=== PATIENT | male | born 2000 ===

== ENCOUNTER 2020-06-12 16:58 | Observation (INO) | payer OTHER ==
[~2020-06-12] VITALS: Ht 167.6 cm; Wt 66.2 kg
[2020-06-12] MEDS ORDERED: SODIUM CHLORIDE 0.9% 1000ML 1,000 ML IV STA (17:28)
[2020-06-12] MEDS ORDERED: METOPROLOL TARTRATE 25 MG TAB PO ONE (17:30)
[2020-06-12 18:03] LABS: BASOPHILS # (AUTO) 0.1 (0.0-0.1); BASOPHILS % 0.9 % (0.0-1.0); EOSINOPHILS # (AUTO) 0.5 (0.0-0.4); EOSINOPHILS % 8.8 % (0.0-6.0); HEMATOCRIT 42.2 % (38.2-49.6); HEMOGLOBIN 13.5 g/dL (14.0-18.0); INR 0.96; LYMPHOCYTES # (AUTO) 2.3 (1.0-3.2); LYMPHOCYTES % 41.9 % (18.0-39.1); MEAN CORPUSCULAR HEMOGLOBIN 26.9 pg (28-32); MEAN CORPUSCULAR VOLUME 84.1 fL (81-99); MONOCYTES # (AUTO) 0.4 (0.2-0.8); MONOCYTES % 7.1 % (4.4-11.3); NEUTROPHILS # (AUTO) 2.2 (2.1-6.9); NEUTROPHILS % 40.7 % (38.7-80.0); PLATELET COUNT 308 x10e3/uL (140-360); PROTHROMBIN TIME 13.4 seconds (11.9-14.5); RED BLOOD COUNT 5.02 x10e6/uL (4.3-5.7); RED CELL DISTRIBUTION WIDTH 12.6 % (11.7-14.4)
[2020-06-12 18:04] LABS: PARTIAL THROMBOPLASTIN TIME 26.4 seconds (23.8-35.5)
--- NOTE | 2020-06-12 18:07 | Diagnostic Imaging Report ---
EXAMINATION: CHEST SINGLE (PORTABLE) INDICATION: New atrial fibrillation. COMPARISON: None FINDINGS: TUBES and LINES: None. LUNGS: Normal lung volumes. Lungs are clear. No consolidations. PLEURA: No pleural effusion or pneumothorax. HEART AND MEDIASTINUM: The cardiomediastinal silhouette is unremarkable. BONES AND SOFT TISSUES: No acute osseous lesion. Soft tissues are unremarkable. UPPER ABDOMEN: No free air under the diaphragm. IMPRESSION: Normal chest x-ray. Signed by: Ivett aGribay MD on 06/12/2020 6:04 PM
[2020-06-12 18:11] LABS: ALANINE AMINOTRANSFERASE 22 IU/L (0-55); ALBUMIN 4.1 g/dL (3.5-5.0); ALBUMIN/GLOBULIN RATIO 1.2 (0.8-2.0); ALKALINE PHOSPHATASE 56 IU/L (40-150); ANION GAP 11.9 mmol/L (8-16); BLOOD UREA NITROGEN 12 mg/dL (7-26); BUN/CREATININE RATIO 9 (6-25); CALCIUM 9.7 mg/dL (8.4-10.2); CARBON DIOXIDE 28 mmol/L (22-29); CHLORIDE 105 mmol/L (98-107); CREATINE KINASE 230 IU/L (30-200); EST GLOMERULAR FILTRATION RATE > 60 ML/MIN (60-); GLUCOSE 106 mg/dL (74-118); MAGNESIUM 1.7 MG/DL (1.3-2.1); POTASSIUM 3.9 mmol/L (3.5-5.1); SODIUM 141 mmol/L (136-145)
[2020-06-12 18:32] LABS: THYROID STIMULATING HORMONE 1.142 uIU/mL (0.350-4.940)
[2020-06-12 18:36] LABS: BILIRUBIN,URINE NEGATIVE (NEGATIVE); CLARITY,URINE CLEAR (CLEAR); COLOR,URINE YELLOW (YELLOW); KETONES,URINE NEGATIVE (NEGATIVE); LEUKOCYTE ESTERASE ,URINE NEGATIVE (NEGATIVE); NITRITE,URINE NEGATIVE (NEGATIVE); PROTEIN,URINE DIPSTICK NEGATIVE (NEGATIVE); URINE UROBILINOGEN 0.2 mg/dL (0.2 - 1)
[2020-06-12 18:50] LABS: BACTERIA,URINE RARE /HPF; EPITHELIAL CELLS,URINE RARE /LPF
--- NOTE | 2020-06-12 19:11 | Emergency Department Note ---
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 Onset (how long ago): day(s) Radiation: Reports non-radiation Severity: mild Onset quality: gradual Duration (how long): day(s) Timing of current episode: constant Progression: unchanged Chronicity: new Context: Denies recent illness, Denies recent surgery, Denies recent immobilization, Denies recent travel, Denies trauma/injury, Denies new medications, Denies hx of DVT/PE, Denies non-compliance w/ medications, Denies other Relieving factors: none Exacerbating factors: none Associated symptoms: Reports denies other symptoms Treatments prior to arrival: none Past Medical/Family History Physician Review I have reviewed the patient's past medical and family history. Any updates have been documented here. Past Medical History Recent Fever: No Clinical Suspicion of Infectio: No New/Unexplained Change in Ment: No Past Medical History: None Other Surgery: FINGER REPORT Social History Smoking Cessation: Never Smoker Alcohol Use: None Any Illegal Drug Use: No Physically hurt or threatened: No Family History Family history of heart diseas: Yes Other family history Cardiomyopathy on father's side Review of Systems Review of Systems Constitutional: Reports no symptoms EENTM: Reports no symptoms Cardiovascular: Reports palpitations Respiratory: Reports no symptoms Gastrointestinal: Reports no symptoms Genitourinary: Reports no symptoms Musculoskeletal: Reports no symptoms Integumentary: Reports no symptoms Neurological: Reports no symptoms Psychological: Reports no symptoms Endocrine: Reports no symptoms Hematological/Lymphatic: Reports no symptoms Physical Exam Related Data Allergies: Coded Allergies: No Known Allergies (Unverified , 06/12/20) Triage Vital Signs Vital Signs Date Time Temp Pulse Resp B/P (MAP) Pulse Ox O2 Delivery O2 Flow Rate FiO2 06/12/20 17:17 98.4 73 18 129/77 100 Room Air Vital signs reviewed: Yes Physical Exam CONSTITUTIONAL Constitutional: Present well-developed, Present well-nourished HENT HENT: Present normocephalic, Present atraumatic, Present oropharynx clear/moist, Present nose normal HENT L/R: Present left ext ear normal, Present right ext ear normal EYES Eyes: Reports PERRL, Reports conjunctivae normal NECK Neck: Present ROM normal PULMONARY Pulmonary: Present effort normal, Present breath sounds normal CARDIOVASCULAR Cardiovascular: Present irregular rhythm, Present tachycardia GASTROINTESTINAL Abdominal: Present soft, Present nontender, Present bowel sounds normal GENITOURINARY Genitourinary: Present exam deferred SKIN Skin: Present warm, Present dry MUSCULOSKELETAL Musculoskeletal: Present ROM normal NEUROLOGICAL Neurological: Present alert, Present oriented x 3, Present no gross motor or sensory deficits PSYCHOLOGICAL Psychological: Present mood/affect normal, Present judgement normal Results Laboratory Result Diagram: 06/12/20172906/12/201729 Laboratory Laboratory Tests Test 06/12/20 17:40 06/12/20 17:30 Urine Color Yellow (YELLOW) Urine Clarity Clear (CLEAR) Urine pH 8.5 (5 - 7) Urine Specific [place] 1.020 (1.010-1.025) Urine Protein Negative (NEGATIVE) Urine Glucose (UA) Negative (NEGATIVE) Urine Ketones Negative (NEGATIVE) Urine Blood Negative (NEGATIVE) Urine Nitrite Negative (NEGATIVE) Urine Bilirubin Negative (NEGATIVE) Urine Urobilinogen 0.2 mg/dL (0.2 - 1) Urine Leukocyte Esterase Negative (NEGATIVE) Urine RBC None /HPF (0-5) Urine WBC 6-10 /HPF (0-5) Urine Epithelial Cells Rare /LPF (NONE) Urine Bacteria Rare /HPF (NONE) White Blood Count 5.37 x10e3/uL (4.8-10.8) Red Blood Count 5.02 x10e6/uL (4.3-5.7) Hemoglobin 13.5 g/dL (14.0-18.0) Hematocrit 42.2 % (38.2-49.6) Mean Corpuscular Volume 84.1 fL (81-99) Mean Corpuscular Hemoglobin 26.9 pg (28-32) Mean Corpuscular Hemoglobin Concent 32.0 g/dL (31-35) Red Cell Distribution Width 12.6 % (11.7-14.4) Platelet Count 308 x10e3/uL (140-360) Neutrophils (%) (Auto) 40.7 % (38.7-80.0) Lymphocytes (%) (Auto) 41.9 % (18.0-39.1) Monocytes (%) (Auto) 7.1 % (4.4-11.3) Eosinophils (%) (Auto) 8.8 % (0.0-6.0) Basophils (%) (Auto) 0.9 % (0.0-1.0) Neutrophils # (Auto) 2.2 (2.1-6.9) Lymphocytes # (Auto) 2.3 (1.0-3.2) Monocytes # (Auto) 0.4 (0.2-0.8) Eosinophils # (Auto) 0.5 (0.0-0.4) Basophils # (Auto) 0.1 (0.0-0.1) Absolute Immature Granulocyte (auto 0.03 x10e3/uL (0-0.1) Prothrombin Time 13.4 seconds (11.9-14.5) Prothromb Time International Ratio 0.96 Activated Partial Thromboplast Time 26.4 seconds (23.8-35.5) D-Dimer Quantitative (PE/DVT) < 100 ng/mL (0-400) Sodium Level 141 mmol/L (136-145) Potassium Level 3.9 mmol/L (3.5-5.1) Chloride Level 105 mmol/L (98-107) Carbon Dioxide Level 28 mmol/L (22-29) Anion Gap 11.9 mmol/L (8-16) Blood Urea Nitrogen 12 mg/dL (7-26) Creatinine 1.40 mg/dL (0.72-1.25) Estimat Glomerular Filtration Rate > 60 ML/MIN (60-) BUN/Creatinine Ratio 9 (6-25) Glucose Level 106 mg/dL (74-118) Calcium Level 9.7 mg/dL (8.4-10.2) Magnesium Level 1.7 MG/DL (1.3-2.1) Total Bilirubin 1.1 mg/dL (0.2-1.2) Aspartate Amino Transf (AST/SGOT) 22 IU/L (5-34) Alanine Aminotransferase (ALT/SGPT) 22 IU/L (0-55) Alkaline Phosphatase 56 IU/L (40-150) Creatine Kinase 230 IU/L (30-200) Creatine Kinase MB 0.80 ng/mL (0-5.0) Troponin I 0.003 ng/mL (0-0.300) B-Type Natriuretic Peptide < 10.0 pg/mL (0-100) Total Protein 7.6 g/dL (6.5-8.1) Albumin 4.1 g/dL (3.5-5.0) Globulin 3.5 g/dL (2.3-3.5) Albumin/Globulin Ratio 1.2 (0.8-2.0) Thyroid Stimulating Hormone (TSH) 1.142 uIU/mL (0.350-4.940) Lab results reviewed: Yes Imaging Imaging results reviewed: Yes Impressions [place] [id number] Patient Name: MELQUIADES VALLE MR #: [id number] : 2000 Age/Sex: 19/M Req #: [id number] Adm Physician: Ordered by: GALLO STOCK MD Report #: [id number] Location: ER Room/Bed: Procedure: [id number] DX/CHEST SINGLE (PORTABLE) Exam Date: Exam Time: REPORT STATUS: Signed EXAMINATION: CHEST SINGLE (PORTABLE) INDICATION: New atrial fibrillation. COMPARISON: None FINDINGS: TUBES and LINES: None. LUNGS: Normal lung volumes. Lungs are clear. No consolidations. PLEURA: No pleural effusion or pneumothorax. HEART AND MEDIASTINUM: The cardiomediastinal silhouette is unremarkable. BONES AND SOFT TISSUES: No acute osseous lesion. Soft tissues are unremarkable. UPPER ABDOMEN: No free air under the diaphragm. IMPRESSION: Normal chest x-ray. 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 CMP, CBC, EKG, and cardiac enzymes ordered for consideration of ACS, PE, costocondritis, Chest wall pain, and pneumothorax considered. labs, imaging and EKG reviewed . Plan to admit Assessment & Plan Final Impression: (1) Atrial fibrillation with RVR (2) Renal insufficiency Depart Disposition: ADMITTED Last Vital Signs Date Time Temp Pulse Resp B/P (MAP) Pulse Ox O2 Delivery O2 Flow Rate FiO2 06/12/20 17:17 98.4 73 18 129/77 100 Room Air Medications in the ED Sodium Chloride 1,000 ml @ 0 mls/hr Q0M STAT IV ; Start 06/12/20 at 17:28; Stop 06/12/20 at 17:31; Status DC Metoprolol Tartrate 12.5 mg ONCE ONCE PO ; Start 06/12/20 at 17:30; Stop 06/12/20 at 17:32; Status DC JANNETTE HURTADO DO Jun 12, 2020 19:11
[2020-06-12] MEDS ORDERED: ONDANSETRON HCL INJ 2MG/ML 2ML 2 MG/ML VIAL IV PRN (19:45)
[2020-06-12] MEDS ORDERED: MORPHINE SULFATE 2 MG/ML SYR 1ML IV PRN (19:45)
[2020-06-12] MEDS ORDERED: MORPHINE SULFATE INJ 4 MG/ML INJ 1ML IV PRN (20:00)
[2020-06-12 21:21] VITALS: BP 117/79
--- NOTE | 2020-06-12 21:21 | NUR ---
RECEIVED REPORT FROM NIKKI ER NURSE. PATIENT ARRIVED VIA WHEELCHAIR TO THE UNIT. MOTHER WAS ALLOWED TO STAY WITH THE PATIENT. PATIENT IN NO PAIN OR DISTRESS. CALL LIGHT WITHIN REACH. PATIENT IS A&OX4 AND AMBULATES.
[2020-06-12 21:30] VITALS: BP 117/79
[2020-06-12] MEDS: SODIUM CHLORIDE 0.9% 1000ML 1,000 ML IV SCH (22:11)
[2020-06-13] VITALS (8 sets, daily range): BP systolic 119–141; BP diastolic 88–96
[2020-06-13] MEDS ORDERED: FLUTICASONE PRO16 GM (01:21)
[2020-06-13] MEDS ORDERED: ALBUTEROL2.5 MG/3 M (01:21)
[2020-06-13 02:09] LABS: BASOPHILS % 0.6 % (0.0-1.0); EOSINOPHILS # (AUTO) 0.6 (0.0-0.4); HEMATOCRIT 38.8 % (38.2-49.6); HEMOGLOBIN 12.4 g/dL (14.0-18.0); LYMPHOCYTES % 41.8 % (18.0-39.1); MEAN CORPUSCULAR HEMOGLOBIN 26.8 pg (28-32); MEAN CORPUSCULAR VOLUME 83.8 fL (81-99); MONOCYTES # (AUTO) 0.4 (0.2-0.8); MONOCYTES % 4.9 % (4.4-11.3); NEUTROPHILS # (AUTO) 3.1 (2.1-6.9); NEUTROPHILS % 43.6 % (38.7-80.0); PLATELET COUNT 261 x10e3/uL (140-360); RED BLOOD COUNT 4.63 x10e6/uL (4.3-5.7); RED CELL DISTRIBUTION WIDTH 12.6 % (11.7-14.4)
[2020-06-13 02:36] LABS: CREATINE KINASE MB 0.7 ng/mL (0-5.0)
[2020-06-13 02:53] LABS: ALANINE AMINOTRANSFERASE 20 IU/L (0-55); ALBUMIN 3.5 g/dL (3.5-5.0); ALBUMIN/GLOBULIN RATIO 1.2 (0.8-2.0); ALKALINE PHOSPHATASE 47 IU/L (40-150); ANION GAP 8.7 mmol/L (8-16); BLOOD UREA NITROGEN 12 mg/dL (7-26); BUN/CREATININE RATIO 10 (6-25); CALCIUM 8.6 mg/dL (8.4-10.2); CARBON DIOXIDE 25 mmol/L (22-29); CHLORIDE 108 mmol/L (98-107); CREATININE, SERUM 1.25 mg/dL (0.72-1.25); EST GLOMERULAR FILTRATION RATE > 60 ML/MIN (60-); GLUCOSE 109 mg/dL (74-118); POTASSIUM 3.7 mmol/L (3.5-5.1); SODIUM 138 mmol/L (136-145)
--- NOTE | 2020-06-13 07:20 | NUR ---
GAVE BEDSIDE SHIFT REPORT TO ONCOMING NURSE. CALL LIGHT WITHIN REACH. PATIENT IN BED. HOURLY ROUNDING PERFORMED. MOM AT BEDSIDE
[2020-06-13] MEDS ORDERED: ASPIRIN 81 MG CHEW TAB PO ONE ×2 (09:45→13:10)
[2020-06-13 11:38] LABS: CREATINE KINASE MB 0.8 ng/mL (0-5.0)
[2020-06-13] MEDS: SODIUM CHLORIDE 0.9% 1000ML 1,000 ML IV SCH ×3 (11:45→20:59)
--- NOTE | 2020-06-13 12:49 | Consultation ---
DATE OF CONSULTATION: 06/13/2020 Cardiology Consultation REASON FOR CONSULTATION: Atrial fibrillation. 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 Randell denies any chest discomfort, shortness of breath, lightheadedness, syncope, or palpitations. He was found to have incidental atrial fibrillation on exam. He reports normal exercise endurance. D-dimer was negative. Troponin I negative x2. BNP less than 10. TSH 1.1. A chest x-ray without acute abnormalities: COVID-19 is pending results. He denies any prior history of diabetes, hypertension, heart failure or cardiovascular disease, TIA, CVA, or prior bleeding issues. REVIEW OF SYSTEMS: A 12-system review negative except for as noted above. ALLERGIES: NO KNOWN DRUG ALLERGIES. PAST MEDICAL HISTORY: As per HPI, none reported. SOCIAL HISTORY: He denies smoking, alcohol, or drugs. FAMILY HISTORY: Uncles with history of heart failure and father with history of arrhythmia unspecified. PHYSICAL EXAMINATION: VITAL SIGNS: Temperature 97.6, heart rate 72, blood pressure 119/92, respiratory rate 16, and O2 saturation 100%. BMI 23.5. GENERAL: In no acute distress. Alert. NECK: No JVD. No carotid bruit. CHEST: Clear to auscultation. CARDIOVASCULAR: Regular rate and rhythm. Normal S1 and S2. No S3. No S4. No murmurs. No rubs. ABDOMEN: Soft. Bowel sounds positive. EXTREMITIES: No edema. Warm distal extremities. CARDIOVASCULAR MEDICATIONS: Reviewed. STUDIES: Reviewed. Sodium 138, potassium 3.7, chloride 108, bicarbonate 25, BUN 12, creatinine 1.25, and glucose 104. White blood cells 7, hemoglobin 12.4, and platelets 261. PT 13.4 and INR 0.9. AST 22, ALT 20, and alkaline phosphatase 47. ASSESSMENT AND PLAN: A 19-year-old man presents with atrial fibrillation, new diagnosis. RECOMMEND: 1. Obtain echocardiogram to exclude valvular heart disease or systolic ventricular dysfunction. Initiate aspirin 325 mg daily, obtain hemoglobin A1c. 2. Initiate metoprolol 12.5 mg q.12 hours. Further recommendations to follow. If low in atrial fibrillation, consider outpatient followup for treadmill stress testing. Discharge with aspirin 325 mg daily and metoprolol 12.5 mg q.12 hours. Final recommendations once echocardiogram completed. Thank you, Dr. Juarez, for the opportunity to participate in the care of Mr. Banerjee. MD SUZY Serrato/GASPER /[id number]
[2020-06-13] MEDS: METOPROLOL SUCCINATE 25 MG TAB XL PO SCH (12:55)
[2020-06-14] VITALS: BP 148/92
[2020-06-14] MEDS: SODIUM CHLORIDE 0.9% 1000ML 1,000 ML IV SCH (03:27)
[2020-06-14 04:00] VITALS: BP 143/99
[2020-06-14 05:33] LABS: CHOL/HDL RATIO 3.2 (3.9-4.7)
[2020-06-14 08:27] VITALS: BP 133/94
[2020-06-14] MEDS: METOPROLOL SUCCINATE 25 MG TAB XL PO SCH (08:34)
[2020-06-14 08:50] VITALS: BP 133/94
--- NOTE | 2020-06-14 10:42 | Discharge Summary ---
HOSPITAL COURSE: Mr. Banerjee is a 19-year-old man with history of asthma. He was admitted for a new onset atrial fibrillation. Apparently, he went for a routine health examination for college and he was found to have atrial fibrillation. Denies any other symptoms. He was seen by Dr. Dan. Started on aspirin and metoprolol. Echocardiogram shows LVH. PHYSICAL EXAMINATION: GENERAL: Today, he is awake and alert. VITAL SIGNS: Temperature is 97.9, blood pressure is 143/99. HEART: Irregularly irregular. LUNGS: Clear to auscultation. ABDOMEN: Soft. LABORATORY DATA: On the blood work, white count 7.08, hemoglobin 12.4, hematocrit 38.8, potassium 3.7, and creatinine 1.25. Cardiac enzymes negative. COVID is still pending. Chest x-ray on admission shows normal chest x-ray. Echocardiogram shows LVH. ASSESSMENT: 1. New onset atrial fibrillation. 2. History of asthma. PLAN: At present time, his echocardiogram shows LVH. Started the patient on aspirin 325 mg daily and metoprolol 12.5 mg q.[address] Dan, the patient is going to be discharged home and he is going to have a treadmill stress test as an outpatient. All this was discussed in detail with the patient and mother at bedside. All questions were answered to satisfaction. Please see home medication reconciliation list. MD SONJA Mandel/GASPER /[id number]
[2020-06-14] MEDS ORDERED: METOPROLOL SUCC25 MG PO (11:32)
[2020-06-14] MEDS ORDERED: ASPIRIN ENTERI325 MG PO (11:32)
--- NOTE | 2020-06-14 21:27 | Progress Note ---
DATE: 06/14/2020 Cardiology Progress Note SUBJECTIVE: Denies any chest pain or shortness of breath. Converted to sinus rhythm. OBJECTIVE: VITAL SIGNS: Temperature 97.7, heart rate 96, blood pressure 133/94, respiratory rate 18, O2 saturation 100%. GENERAL: No acute distress. Alert. NECK: No JVD. CHEST: Clear to auscultation. CARDIOVASCULAR: Regular rate and rhythm. Normal S1 and S2. No S3. No S4. No murmurs, no rubs. ABDOMEN: Soft. Bowel sounds positive. EXTREMITIES: No edema. CARDIOVASCULAR MEDICATIONS: Reviewed. Aspirin 325 mg daily and metoprolol succinate 12.5 mg daily. LABORATORY DATA: Studies reviewed. Creatinine 1.25, hemoglobin 12, and platelets 261. ASSESSMENT AND PLAN: A 19-year-old man, presents with known atrial fibrillation, now converted back to sinus rhythm. Preserved left ventricular systolic function on echocardiogram. No significant valvular abnormalities (nonvalvular atrial fibrillation). RECOMMENDATIONS: Aspirin 325 mg daily and metoprolol for rate control strategies. The patient is currently back to sinus rhythm. Discussed alternatives including consideration for outpatient PVI particularly if symptoms develop. At this point in time, episodes have been mainly asymptomatic and medical Rx is therefore advised. Further outpatient evaluation including treadmill stress test. MD SUZY Serrato/GASPER /[id number] MTDD
== END 2020-06-14 11:50 | disposition home or self-care (01) ==
LOC: ER 17:50 → ERHOLD 21:06 → MED/SURG 21:23
PROVIDERS: ADMIT Internal Medicine; ATTEND Internal Medicine
DX: I48.91 Unspecified atrial fibrillation (principal); N28.9 Disorder of kidney and ureter, unspecified; Z83.3 Family history of diabetes mellitus; Z82.49 Family history of ischemic heart disease and other diseases of the circulatory system; J45.909 Unspecified asthma, uncomplicated; Z11.59 Encounter for screening for other viral diseases
CPT/HCPCS: 36415 ×3; 71045; 80053 ×2; 80061; 81001; 82550 ×2; 82553 ×2; 83036; 83735; 83880; 84443; 84484 ×2; 85025 ×2; 85379; 85610; 85730; 93005 ×2; 93306; 96360; 99284; G0378 ×3; J7030 ×2; U0002